=== PATIENT | female | born 1995 | race Caucasian/White ===

== ENCOUNTER → 2021-05-01 | Day surgery (SDC) | payer OTHER ==
[~2021-05-01] MED LIST: hydrALAZINE 20 MG/ML VIAL SLOW IVP PRN
[2021-05-01 19:27] VITALS: BMI 23.2
== END | disposition home or self-care (01) ==
LOC: CSHLD/OP 19:03
PROVIDERS: ATTEND Obstetrics & Gynecology
DX: O99.613 Diseases of the digestive system complicating pregnancy, third trimester (principal); O36.8330 Maternal care for abnormalities of the fetal heart rate or rhythm, third trimester, not applicable or unspecified; K59.00 Constipation, unspecified; K30 Functional dyspepsia; Z3A.37 37 weeks gestation of pregnancy; Z79.899 Other long term (current) drug therapy
CPT/HCPCS: 99282

== ENCOUNTER 2021-05-15 06:00 | Inpatient (IN) | payer OTHER ==
[2021-05-15 06:49] VITALS: BMI 23.8
[2021-05-15] MEDS ORDERED: Butorphanol Tartrate 1 MG/ML VIAL SLOW IVP PRN (07:00)
[2021-05-15] MEDS ORDERED: Ibuprofen 800 MG TAB PO PRN (07:00)
[2021-05-15] MEDS ORDERED: HYDROcodone/Acetaminophen 5/325 mg Tablet PO PRN (07:00)
[2021-05-15] MEDS ORDERED: Misoprostol 200 MCG TAB PR PRN (07:00)
[2021-05-15] MEDS ORDERED: Methylergonovine 0.2 MG/ML VIAL IM PRN (07:00)
[2021-05-15] MEDS ORDERED: Lactated Ringer's 1,000 ML IV SCH (07:00)
[2021-05-15] MEDS ORDERED: Promethazine HCl 25 MG/ML VIAL IM PRN (07:00)
[2021-05-15] MEDS ORDERED: Lidocaine 1% (PF) 30 ML VIAL SC PRN (07:00)
[2021-05-15] MEDS ORDERED: Carboprost 250 MCG/ML AMP IM PRN (07:00)
[2021-05-15] MEDS ORDERED: hydrALAZINE 20 MG/ML VIAL SLOW IVP PRN ×2 (07:00→10:39)
[2021-05-15] MEDS ORDERED: Ondansetron PF 4 MG/2 ML Vial IVP PRN (07:00)
[2021-05-15] MEDS ORDERED: Diphenoxylate HCl/Atropine Tablet PO PRN ×2 (07:00)
[2021-05-15] MEDS ORDERED: Acetaminophen 500 MG TAB PO PRN (07:00)
[2021-05-15] MEDS: NS w/ Oxytocin 30 units 500 ML IV SCH ×2 (07:19→11:57)
[2021-05-15 07:31] LABS: Mean Corpuscular HGB CONC 31.3 g/dL (32.0-36.0); Mean Corpuscular Hemoglobin 26.4 pg (27.0-33.0); Mean Corpuscular Volume 84.2 fl (81.6-98.3); Mean Platelet Volume 9.6 fl (7.4-10.4); Platelet Count 237 10x3/uL (150-450); RBC Distribution Width 15.7 % (11.5-14.5); Red Blood Cell (RBC) Count 3.79 10x6/uL (3.90-5.03)
[2021-05-15 08:11] LABS: Hep B Surf Ag Non-Reactive S/CO (NonReactive); Syphilis Antibody Nonreactive (Nonreactive); Syphilis Antibody Index 0.02 S/CO (<1.00 Non-Reactive)
[2021-05-15 08:26] LABS: HBSAg Index 0.13 S/CO (0-0.99)
[2021-05-15] MEDS ORDERED: Fentanyl 2 mcg/Bup 0.1% Cadd 100 ML ONE (08:56)
[2021-05-15] MEDS ORDERED: Zolpidem Tartrate 5 MG TAB PO PRN (10:39)
[2021-05-15] MEDS ORDERED: Benzocaine-Menthol 82.5 ML CAN TOP PRN (10:39)
[2021-05-15] MEDS ORDERED: Lanolin Ointment 7 GM TUBE TOP PRN (10:39)
[2021-05-15] MEDS ORDERED: Bisacodyl 10 MG SUPP PR PRN (10:39)
[2021-05-15] MEDS ORDERED: Milk Of Magnesia 30 ML UDCUP PO PRN (10:39)
[2021-05-15] MEDS ORDERED: traMADol HCl 50 MG TAB PO PRN (10:39)
[2021-05-15] MEDS ORDERED: Bupivacaine 0.25% HCL 30 ML VIAL ONE (15:04)
[2021-05-15] MEDS: Ibuprofen 800 MG TAB PO SCH ×2 (15:59→22:46)
[2021-05-15] MEDS: Ferrous Sulfate 325 MG TAB PO SCH (18:15)
[2021-05-15] MEDS: Docusate Calcium (SURFAK) 240 MG CAP PO SCH (22:23)
[2021-05-16] MEDS: Ibuprofen 800 MG TAB PO SCH ×3 (06:24→21:48)
[2021-05-16] MEDS: Ferrous Sulfate 325 MG TAB PO SCH ×2 (09:13→17:02)
[2021-05-16] MEDS: Docusate Calcium (SURFAK) 240 MG CAP PO SCH ×2 (09:13→21:48)
[2021-05-16] MEDS ORDERED: Boostrix 0.5 ML (Tdap) VIAL IM ONE (10:39)
[2021-05-17] MEDS: Ibuprofen 800 MG TAB PO SCH (06:43)
[2021-05-17 07:53] VITALS: BP 100/64; TEMP 97.6
[2021-05-17] MEDS: Docusate Calcium (SURFAK) 240 MG CAP PO SCH (09:18)
[2021-05-17] MEDS: Ferrous Sulfate 325 MG TAB PO SCH (09:18)
== END 2021-05-17 12:50 | disposition home or self-care (01) | DRG 807 ==
LOC: CSHLD 06:04 → CSHPED 13:14
PROVIDERS: ADMIT Obstetrics & Gynecology; ATTEND Obstetrics & Gynecology
PROC: 10E0XZZ Delivery of Products of Conception, External Approach (ICD-10-PCS; principal; 2021-05-15)
DX: O80 Encounter for full-term uncomplicated delivery (principal); Z37.0 Single live birth; Z20.822 Contact with and (suspected) exposure to COVID-19; Z3A.39 39 weeks gestation of pregnancy
CPT/HCPCS: 36415; 51701; 85027; 86780; 86850; 86900; 86901; 87340; J2590; S0020

== ENCOUNTER 2021-05-20 14:08 | Emergency (ER) | payer OTHER ==
[2021-05-20 16:41] LABS: #Eosinphils 0.1 10x3/uL (0.0-0.5); #Monocytes 0.5 10x3/uL (0.0-1.1); #Neutrophils 6.3 10x3/uL (1.5-8.4); %Basophils 0.1 % (0.0-2.0); %Eosinophils 0.6 % (0.0-6.0); %Lymphocytes 18.1 % (18.0-47.0); %Monocytes 5.9 % (0.0-10.0); %Neutrophils 74.7 % (40.0-75.0); Hemoglobin 11.9 g/dL (12.0-15.5); Mean Corpuscular HGB CONC 31.4 g/dL (32.0-36.0); Mean Corpuscular Hemoglobin 26.8 pg (27.0-33.0); Mean Corpuscular Volume 85.4 fl (81.6-98.3); Mean Platelet Volume 9.1 fl (7.4-10.4); Platelet Count 246 10x3/uL (150-450); RBC Distribution Width 16.7 % (11.5-14.5); Red Blood Cell (RBC) Count 4.44 10x6/uL (3.90-5.03); White Blood Cell (WBC) Count 8.5 10x3/uL (3.5-10.5)
[2021-05-20 16:48] LABS: ALT (SGPT) 37 U/L (8-55); AST (SGOT) 25 U/L (5-34); Albumin 3.6 g/dL (3.5-5.0); Alkaline Phosphatase 215 U/L (40-110); Anion Gap 13 mmol/L (10-20); BUN (Urea Nitrogen) 7 mg/dL (7.0-18.7); Bilirubin, Total 0.3 mg/dL (0.2-1.2); Calc. Creatinine Clearance 0 mL/min (70-130); Calcium 9.3 mg/dL (7.8-10.44); Carbon Dioxide 25 mmol/L (22-29); Chloride 105 mmol/L (98-107); Globulin 3.6 g/dL (2.4-3.5); Glucose 82 mg/dL (70-105); Potassium 3.8 mmol/L (3.5-5.1); Protein, Total 7.2 g/dL (6.0-8.3); Sodium 139 mmol/L (136-145)
[2021-05-20] MEDS ORDERED: Acetaminophen 500 MG TAB ONE (17:18)
[2021-05-20] MEDS ORDERED: diphenhydrAMINE 50 MG/ML VIAL ONE (17:18)
[2021-05-20] MEDS ORDERED: Metoclopramide HCl 10 MG/2 ML VIAL ONE (17:18)
[2021-05-20 17:23] LABS: Bilirubin Neg (Negative); Blood, Urine 250 (Negative); Clarity Cloudy (Clear); Glucose, Urine (Dipstick) Normal (Negative); Ketone, Urine Negative (Negative); Leukocyte 500 (Negative); Nitrite Positive (Negative); Protein, Urine (Dipstick) 30 mg/dl (Neg-Trace); Specific Gravity, Urine 1.005 (1.002-1.036); Urobilinogen Normal mg/dL (Less than 2)
[2021-05-20 17:42] LABS: Bacteria/HPF 4+ HPF (None Seen); Squamous Epithelial 0-3 HPF (0-3); WBC/HPF Greater Than 50 HPF (0-3)
[2021-05-20] MEDS ORDERED: cefTRIAXone\\ROCEPHIN 1 GM VIAL ONE (18:30)
== END 2021-05-20 19:19 | disposition home or self-care (01) ==
LOC: CSHERS 14:08
DX: N39.0 Urinary tract infection, site not specified (principal)
CPT/HCPCS: 36415; 80053; 81003; 81015; 85025; 96365; 96367; 96375; J0696; J1200; J2765